=== PATIENT | female | born 1980 | race Caucasian/White ===

== ENCOUNTER 2018-06-21 09:20 | Emergency (ER) | payer BC ==
[~2018-06-21] VITALS: Ht 172.7 cm; Wt 81.6 kg
[2018-06-21 09:38] VITALS: BP 116/79
--- NOTE | 2018-06-21 10:00 | Emergency Room Report ---
History of Present Illness General Chief Complaint: General Complaint Source: Patient Present Illness HPI 37-year-old female presents with concern for missing contact lenses. She reports she put them on in her eyes 2 days ago in the morning, slept in them that night, then went to take him off last night and at some point she noticed that weren't in her eyes any more. She denies foreign body sensation, blurred vision, eye pain, irritation, redness, any complaints at all actually. She is just concerned because she has no idea when she may have taken them out, or they could've gone, and wants to make sure they're not in her eyes still. Allergies: Coded Allergies: No Known Allergies (Unverified , 06/21/18) Patient History Past Medical History: see triage record Last Menstrual Period: IUD implant Now: No Reviewed Nursing Documentation: PMH: Agreed; PSxH: Agreed Nursing Documentation-PMH Past Medical History: No Stated History Review of Systems Constitutional: Denies: fever Eye: Denies: acuity changes Respiratory: Denies: cough, shortness of breath Cardiovascular: Denies: chest pain Gastrointestinal: Denies: nausea, vomiting Skin: Denies: rash Neurological: Denies: headache Physical Exam Vital Signs Date Time Temp Pulse Resp B/P (MAP) Pulse Ox O2 Delivery O2 Flow Rate FiO2 06/21/18 09:28 98.1 69 18 116/79 97 Room Air 98.1 General Appearance: well appearing, no apparent distress Head: normocephalic, atraumatic Eyes: bilateral eye PERRL, bilateral eye EOMI, bilateral eye Scleral Injection , bilateral eye other - No foreign body detected no large areas of injection of the sclera, just mild, superior and inferior lids were everted in both eyes, no foreign body seen at all ENT: hearing grossly normal, normal voice Neck: full range of motion, supple Respiratory: no respiratory distress, speaking full sentences Musculoskeletal: no calf tenderness Neurologic: alert, normal gait Psychiatric: mood/affect normal Skin: no rash Medical Decision Making Diagnostic Impression: Primary Impression: Encounter for generalized patient complaints ER Course Patient given reassurance, unlikely to still have retention of contact lens foreign body in both eyes without any symptoms and with normal examination. 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 Last Vital Signs Date Time Temp Pulse Resp B/P (MAP) Pulse Ox O2 Delivery O2 Flow Rate FiO2 06/21/18 09:28 98.1 69 18 116/79 97 Room Air 98.1 Disposition: HOME, SELF-CARE Condition: Stable Referrals: [facility] Patient Instructions: Allergic Conjunctivitis, [id number] STAR GUTIERREZ M.D Jun 21, 2018 10:00
[2018-06-21 10:14] VITALS: BP 116/79
== END 2018-06-21 10:14 | disposition home or self-care (01) ==
LOC: EMR 09:56
DX: H57.8 Other specified disorders of eye and adnexa (principal)
CPT/HCPCS: 99282